=== PATIENT | male | born 1985 | race Caucasian/White ===

== ENCOUNTER 2020-02-17 15:53 | Emergency (ER) | payer OTHER, SELFPAY ==
--- NOTE | ~2020-02-17 | XR_ITS ---
EXAMINATION: XR wrist LT 2V INDICATION: Left wrist fracture status post reduction TECHNIQUE: Two views of the left wrist are obtained. COMPARISON: 1618 hours FINDINGS: Again seen is a comminuted intra-articular fracture of the distal radius. There is persiste nt but improved dorsal displacement of the distal fracture fragment. There is also reduced dorsal ang ulation at the fracture site. A splint has been applied. No additional acute osseous findings are patrick dent. IMPRESSION: 1. Partially reduced and splinted comminuted intra-articular fracture of the distal radius. Reviewed, dictated and finalized at location A. IMPRESSION: 1. Partially reduced and splinted comminuted intra-articular fracture of the di stal radius.
--- NOTE | ~2020-02-17 | XR_ITS ---
XR wrist LT min 3V DATE: 02/17/2020 16:31 INDICATION: Fall from truck. left wrist injury, pain, deformity. TECHNIQUE: 4 views COMPARISON: None FINDINGS: There is a comminuted intra-articular distal radial fracture with up to 4.5 mm dorsal displ acement. There is prominent dorsal inclination of the distal radial articular surface due to apex an terior angulation. Radiocarpal alignment is preserved. The distal ulna is intact. IMPRESSION: Comminuted intra-articular distal radial dorsally displaced anteriorly angulated fracture Reviewed, dictated and finalized at location B. IMPRESSION: Comminuted intra-articular distal radial dorsally displaced anterio rly angulated fracture
[2020-02-17 15:56] VITALS: BP 135/98; PULSE 97; RESP 18; O2SAT 100
--- NOTE | 2020-02-17 16:10 | ED.GENADULT ---
HPI - General Adult General Chief complaint: Extremity Injury, Upper <Romario Bynum PA-C - Last Filed: 02/17/20 17:31> Stated complaint: wrist injury <Romario Bynum PA-C - Last Filed: 02/17/20 17:31> Time Seen by Provider: 02/17/20 15:56 <Romario Bynum PA-C - Last Filed: 02/17/20 17:31> Source: patient <Romario Bnyum PA-C - Last Filed: 02/17/20 17:31> Mode of arrival: ambulatory <Romario Bynum PA-C - Last Filed: 02/17/20 17:31> Limitations: no limitations <Romario Bynum PA-C - Last Filed: 02/17/20 17:31> History of Present Illness HPI narrative: Patient is a 35-year-old male who presents to emergency department for evaluation of left wrist injury that occurred just prior to arrival after miss stepping off the back of his truck falling 6 feet onto an outstretched left wrist with immediate pain and deformity took 2 hydrocodone presents to emergency department noting moderate aching pain worse with any movement or manipulation. Patient denies other injuries or complaints. Patient presents to room with ice in place <Romario Bynum PA-C - Last Filed: 02/17/20 17:31> Related Data Allergies/adverse reactions: Allergies Allergy/AdvReac Type Severity Reaction Status Date / Time No Known Allergies Allergy Verified 02/17/20 16:03 <Romario Bynum PA-C - Last Filed: 02/17/20 17:31> Review of Systems Review of Systems: All systems reviewed & are unremarkable except as noted in HPI and below <Romario Bynum PA-C - Last Filed: 02/17/20 17:31> PMFSH Social History Social History: Social History (Updated 02/17/20 @ 16:11 by Romario Bynum PA-C) Smoking status: Never smoker <Romario Bynum PA-C - Last Filed: 02/17/20 17:31> Exam Narrative: Exam Narrative: GENERAL: Well-appearing, well-nourished, and in no acute distress. HEAD: Normocephalic, atraumatic. EYES: PERRLA and EOMI. ENT: Nares clear, no rhinorrhea or epistaxis. Mucous membranes moist. CHEST: Clear to auscultation. No respiratory distress. No wheezes rales or rhonchi HEART: Regular rate and rhythm. No murmur heard. Normal peripheral pulses. EXTREMITIES: Deformity and tenderness of the left wrist joint with swelling dorsally SKIN: Warm, dry, no rash. NEURO: No focal deficits. Alert and oriented x3. Neurovascularly intact. Capillary refill less than 2 seconds PSYCH: Normal mood and affect. <Romario Bynum PA-C - Last Filed: 02/17/20 17:31> Course Course Emergency Course: Patient in the room in no distress aware of case findings treatment plan and diagnosis agreeing to follow-up as instructed with orthopedic surgery reduction was performed patient was splinted <Romario Bynum PA-C - Last Filed: 02/17/20 17:31> ANIMAL MAINTENANCE SUPERVISOR/PA Physician Supervision Patient presented for fall on outstretched hand, deformity to left wrist, with confirmed distal radius flat fracture with significant displacement. Patient received IV pain medication, hematoma block, had improved alignment, minor displacement still persists. Shared decision-making occurred with patient, he would not like to pursue any further reduction at this point. We spoke about risks and benefits of this, patient may require operative intervention, he is understanding of this. Patient remained neurovascularly intact following procedure. For this patient encounter, I reviewed the ANIMAL MAINTENANCE SUPERVISOR or PA documentation, treatment plan, and medical decision making; and I had [id number] time with this patient. <Phyllis Martinez MD - Last Filed: 02/17/20 17:44> Vital Signs Vital signs: Vital Signs Pulse Rate 97 02/17/20 15:56 Respiratory Rate 18 02/17/20 15:56 Blood Pressure 135/98 H 02/17/20 15:56 Pulse Oximetry 100 02/17/20 15:56 Temperature 36.9 C 02/17/20 16:20 Pulse Rate 97 02/17/20 15:56 Respiratory Rate 18 02/17/20 15:56 Blood Pressure 135/98 H 02/17/20 15:56 Pulse Oximetry 100
[2020-02-17] MEDS: SODIUM CHLORIDE 0.9% IV 1,000 ML 999 ML IV CONT (16:19)
[2020-02-17 16:20] VITALS: TEMP 36.9
[2020-02-17] MEDS: MORPHINE SULFATE 4 MG/ML INJ IV PUSH (16:20)
[2020-02-17 17:50] VITALS: BP 132/70; PULSE 64; RESP 14; O2SAT 99
== END 2020-02-17 17:52 | disposition home or self-care (01) ==
PROVIDERS: Emergency Provider Emergency Medicine
DX: S52.502A Unspecified fracture of the lower end of left radius, initial encounter for closed fracture (principal); V58.4XXA Person boarding or alighting a pick-up truck or van injured in noncollision transport accident, initial encounter
CPT/HCPCS: 25605; 73100; 73110; 96374; 96375; 99285; A4565; J0131; J1170; J2270; J7030